=== PATIENT | female | born 1985 | race Caucasian/White ===

== ENCOUNTER 2016-11-16 15:08 | Emergency (ER) | payer OTHER ==
[2016-11-16 18:19] VITALS: BP 122/68
== END 2016-11-16 18:19 | disposition home or self-care (01) ==
LOC: ED 15:08
DX: T63.481A Toxic effect of venom of other arthropod, accidental (unintentional), initial encounter (principal); R21 Rash and other nonspecific skin eruption; Y92.89 Other specified places as the place of occurrence of the external cause
CPT/HCPCS: J1100

== ENCOUNTER 2017-01-28 09:31 | Emergency (ER) | payer OTHER ==
[~2017-01-28] VITALS: Ht 154.9 cm; Wt 77.7 kg
[2017-01-28 09:44] VITALS: Ht 154.9 cm; Wt 77.7 kg
[2017-01-28 13:22] VITALS: BP 138/71
== END 2017-01-28 13:22 | disposition home or self-care (01) ==
LOC: ED 09:31
DX: S20.20XA Contusion of thorax, unspecified, initial encounter (principal); S10.91XA Abrasion of unspecified part of neck, initial encounter; V43.02XA Car driver injured in collision with other type car in nontraffic accident, initial encounter; W22.11XA Striking against or struck by driver side automobile airbag, initial encounter; Y93.I9 Activity, other involving external motion; Y92.481 Parking lot as the place of occurrence of the external cause; Y99.8 Other external cause status
CPT/HCPCS: J1885

== ENCOUNTER 2017-04-16 11:42 | Emergency (ER) | payer OTHER ==
[~2017-04-16] VITALS: Ht 154.9 cm; Wt 78.9 kg
[2017-04-16 11:55] VITALS: Ht 154.9 cm; Wt 78.9 kg
[2017-04-16 12:51] VITALS: BP 115/65
== END 2017-04-16 12:45 | disposition home or self-care (01) ==
LOC: ED 11:42
DX: J03.90 Acute tonsillitis, unspecified (principal)

== ENCOUNTER 2018-03-11 08:22 | Emergency (ER) | payer OTHER ==
[~2018-03-11] VITALS: Ht 154.9 cm; Wt 79.4 kg
[2018-03-11 08:35] VITALS: Ht 154.9 cm; Wt 79.4 kg
[2018-03-11 09:08] LABS: BASOPHIL % 0.5 % (0-2); PLATELET COUNT 306 x10^3mcL (130-400); RED CELL DISTRIBUTION WIDTH 13.1 % (11.5-14.5)
[2018-03-11 09:35] LABS: CALCIUM 8.8 mg/dL (8.5-10.1); CARBON DIOXIDE 27.3 mmol/L (21-32); CHLORIDE SERUM 103 mmol/L (98-107); CREATININE SERUM 0.7 mg/dL (0.6-1.0); GFR1 > 60 mL/min; GLUCOSE SERUM 104 mg/dL (74-106); POTASSIUM SERUM 4.1 mmol/L (3.5-5.1); SODIUM SERUM 139 mmol/L (136-145)
[2018-03-11 09:39] LABS: ALBUMIN 3.4 g/dL (3.4-5.0); ALKALINE PHOSPHATASE 44 U/L (46-116); ALT/SGPT 22 U/L (14-59); AMYLASE 58 U/L (25-115); AST/SGOT 16 U/L (15-37); BILIRUBIN TOTAL 0.3 mg/dL (0.20-1.00); LIPASE 115 IU/L (73-393); TOTAL PROTEIN, SERUM 6.7 g/dL (6.4-8.2)
[2018-03-11 11:26] VITALS: BP 117/40
== END 2018-03-11 11:26 | disposition home or self-care (01) ==
LOC: ED 08:22
PROVIDERS: Specialist
DX: R10.30 Lower abdominal pain, unspecified (principal); Z98.890 Other specified postprocedural states
CPT/HCPCS: J1885; J2405; J7030

== ENCOUNTER 2018-06-22 14:07 | Emergency (ER) | payer OTHER ==
[~2018-06-22] VITALS: Ht 154.9 cm; Wt 76.8 kg
[2018-06-22 14:14] VITALS: BP 123/78; Ht 154.9 cm; Wt 76.8 kg
== END 2018-06-22 15:04 | disposition home or self-care (01) ==
LOC: ED 14:07
DX: R51 Headache (principal); Z98.890 Other specified postprocedural states

== ENCOUNTER 2018-11-13 07:58 | Emergency (ER) | payer OTHER ==
[~2018-11-13] VITALS: Ht 154.9 cm; Wt 78.0 kg
[2018-11-13 08:07] VITALS: Ht 154.9 cm; Wt 78.0 kg
[2018-11-13 08:41] VITALS: BP 121/76
== END 2018-11-13 08:41 | disposition home or self-care (01) ==
LOC: ED 07:58
DX: H60.91 Unspecified otitis externa, right ear (principal)

== ENCOUNTER 2020-04-13 19:02 | Emergency (ER) | payer OTHER ==
[~2020-04-13] VITALS: Ht 154.9 cm; Wt 80.3 kg
[2020-04-13 19:26] VITALS: Ht 154.9 cm; Wt 80.3 kg
[2020-04-13 20:04] LABS: BASOPHIL % 0.6 % (0.2-1.3); PLATELET COUNT 259 x10^3mcL (179-408); RED CELL DISTRIBUTION WIDTH 12.5 % (12.3-17.7)
[2020-04-13 21:08] LABS: CARBON DIOXIDE 26.7 mmol/L (21-32); CHLORIDE SERUM 103 mmol/L (98-107); CREATININE SERUM 0.6 mg/dL (0.6-1.0); GFR1 > 60 mL/min; GLUCOSE SERUM 114 mg/dL (74-106); POTASSIUM SERUM 4.1 mmol/L (3.5-5.1); SODIUM SERUM 140 mmol/L (136-145)
[2020-04-13 21:12] LABS: ALBUMIN 3.4 g/dL (3.4-5.0); ALKALINE PHOSPHATASE 50 U/L (46-116); ALT/SGPT 26 U/L (14-59); AMYLASE 44 U/L (25-115); AST/SGOT 24 U/L (15-37); BILIRUBIN TOTAL 0.4 mg/dL (0.20-1.00); LIPASE 70 IU/L (73-393); TOTAL PROTEIN, SERUM 6.4 g/dL (6.4-8.2)
[2020-04-13] MEDS ORDERED: ULTRAM50 MG PO (21:31)
[2020-04-13] MEDS ORDERED: ONDANSETRON4 M3 PO (21:31)
[2020-04-13] MEDS ORDERED: LOMOTIL1 TAB PO (21:31)
[2020-04-13 22:01] VITALS: BP 132/52
== END 2020-04-13 22:01 | disposition home or self-care (01) ==
LOC: ED 19:02
PROVIDERS: Emergency Medicine
DX: K52.9 Noninfective gastroenteritis and colitis, unspecified (principal); Z98.890 Other specified postprocedural states
CPT/HCPCS: J1885; J2405